=== PATIENT | female | born 1955 | race Caucasian/White ===

== ENCOUNTER 2017-09-14 21:24 | Emergency (ER) | payer BC ==
--- NOTE | 2017-09-14 21:47 | RAD ---
TWO VIEW LEFT HUMERUS 09/14/17 INDICATION: Injury. FINDINGS: No fracture or dislocation. IMPRESSION: No acute process. POS: [facility]
[2017-09-14] MEDS ORDERED: Ketorolac Tromethamine 30 MG/ML VIAL ONE (22:59)
== END 2017-09-14 23:15 | disposition home or self-care (01) ==
LOC: ERS 21:24
DX: S40.022A Contusion of left upper arm, initial encounter (principal); E03.9 Hypothyroidism, unspecified; Z79.899 Other long term (current) drug therapy; W10.9XXA Fall (on) (from) unspecified stairs and steps, initial encounter
CPT/HCPCS: 96372; J1885

== ENCOUNTER 2019-03-12 12:44 | Emergency (ER) | payer BC, SELFPAY ==
[2019-03-12] MEDS ORDERED: Lidocaine 1% w/Epinephrine 1:100K 20 ML VIAL ONE (15:14)
[2019-03-12] MEDS ORDERED: Bacitracin Zinc 1 Packet ONE (16:20)
== END 2019-03-12 16:55 | disposition home or self-care (01) ==
LOC: ERS 12:44
DX: I83.91 Asymptomatic varicose veins of right lower extremity (principal); E03.9 Hypothyroidism, unspecified; Z79.899 Other long term (current) drug therapy
CPT/HCPCS: 99283; J2001

== ENCOUNTER 2019-09-12 14:26 | Outpatient (CLI) | payer OTHER ==
--- NOTE | 2019-09-17 09:44 | MMO ---
Bilateral MAMMO Bilat Screen [facility]. CLINICAL HISTORY: Patient is 63 years old and is seen for screening. The patient has no family history of breast cancer. The patient has no personal history of cancer. VIEWS: The views performed were: bilateral craniocaudal with tomosynthesis and bilateral mediolateral oblique with tomosynthesis. FILMS COMPARED: The present examination has been compared to prior imaging studies performed at [facility] on 09/21/2017 and 10/03/2017. This study has been interpreted with the assistance of computer-aided detection. MAMMOGRAM FINDINGS: The breasts are almost entirely fat. There are stable benign appearing calcifications seen in both breasts. Nodularity is stable. There are no suspicious masses, suspicious calcifications, or new areas of architectural distortion. IMPRESSION: THERE IS NO MAMMOGRAPHIC EVIDENCE OF MALIGNANCY. A ROUTINE FOLLOW-UP MAMMOGRAM IN 1 YEAR IS RECOMMENDED. THE RESULTS OF THIS EXAM WERE SENT TO THE PATIENT. ACR BI-RADS Category 2 - Benign finding MAMMOGRAPHY NOTE: 1. A negative mammogram report should not delay a biopsy if a dominant of clinically suspicious mass is present. 2. Approximately 10% to 15% of breast cancers are not detected by mammography. 3. Adenosis and dense breasts may obscure an underlying neoplasm. Reported by: ASIM BEST MD Electonically Signed: [id number]
== END 2019-09-12 14:27 | disposition home or self-care (01) ==
LOC: BICMAMMO 14:26
PROVIDERS: ATTEND Internal Medicine
DX: Z12.31 Encounter for screening mammogram for malignant neoplasm of breast (principal)
CPT/HCPCS: 77063; 77067

== ENCOUNTER 2021-04-15 11:15 | Outpatient (CLI) | payer MEDICARE | END 2021-04-15 11:16 | disposition home or self-care (01) | LOC: BICMAMMO 11:15 | PROVIDERS: ATTEND Internal Medicine | DX: Z12.31 Encounter for screening mammogram for malignant neoplasm of breast (principal); Z80.3 Family history of malignant neoplasm of breast; Z85.828 Personal history of other malignant neoplasm of skin | CPT/HCPCS: 77063; 77067 ==

== ENCOUNTER 2021-09-15 15:14 | Outpatient (CLI) | payer MEDICARE | END 2021-09-15 15:15 | disposition home or self-care (01) | LOC: BICMRI 15:14 | PROVIDERS: ATTEND Family Medicine | DX: M47.816 Spondylosis without myelopathy or radiculopathy, lumbar region (principal); M51.9 Unspecified thoracic, thoracolumbar and lumbosacral intervertebral disc disorder; M51.36 Other intervertebral disc degeneration, lumbar region; M51.27 Other intervertebral disc displacement, lumbosacral region; M48.07 Spinal stenosis, lumbosacral region; M48.061 Spinal stenosis, lumbar region without neurogenic claudication | CPT/HCPCS: 72148 ==

== ENCOUNTER 2024-03-30 01:03 | Emergency (ER) | payer MEDICARE ==
[2024-03-30 02:23] LABS: #Basophils 0.06 10x3/uL (0.0-0.2); %Basophils 0.9 % (0.0-1.0); %Eosinophils 3.8 % (0.0-10.0); %Lymphocytes 41.1 % (21.0-51.0); %Monocytes 11.6 % (0.0-10.0); %Neutrophils 42.4 % (42.0-75.0); Hematocrit 40.7 % (36.0-47.0); Hemoglobin 13.3 g/dL (12.0-16.0); Mean Corpuscular HGB CONC 32.7 g/dL (32.0-36.0); Mean Corpuscular Hemoglobin 31.1 pg (27.0-31.0); Mean Corpuscular Volume 95.3 fL (78.0-98.0); Mean Platelet Volume 10.3 fL (7.4-10.4); Platelet Count 217 10x3/uL (130-400); RBC Distribution Width 12.6 % (11.5-14.5); Red Blood Cell (RBC) Count 4.27 mill/uL (4.20-5.40)
[2024-03-30 02:35] LABS: ALT (SGPT) 16 U/L (8-55); AST (SGOT) 18 U/L (5-34); Albumin 3.7 g/dL (3.4-4.8); Alkaline Phosphatase 55 U/L (40-110); Anion Gap 13 mmol/L (10-20); BUN (Urea Nitrogen) 18 mg/dL (9.8-20.1); Bilirubin, Total 0.5 mg/dL (0.2-1.2); Calc. Creatinine Clearance 0 mL/min (70-130); Calcium 9.5 mg/dL (7.8-10.44); Carbon Dioxide 24 mmol/L (23-31); Chloride 108 mmol/L (98-107); Estimated GFR 66; Globulin 3.5 g/dL (2.4-3.5); Glucose 111 mg/dL (80-115); Potassium 3.8 mmol/L (3.5-5.1); Protein, Total 7.2 g/dL (5.8-8.1); Sodium 141 mmol/L (136-145)
== END 2024-03-30 03:21 | disposition home or self-care (01) ==
LOC: ERS 01:03
DX: L97.929 Non-pressure chronic ulcer of unspecified part of left lower leg with unspecified severity (principal); E03.9 Hypothyroidism, unspecified; M19.90 Unspecified osteoarthritis, unspecified site
CPT/HCPCS: 36415; 80053; 85025; 99283

== ENCOUNTER 2024-10-06 17:44 | Emergency (ER) | payer MEDICARE ==
[2024-10-06 18:43] LABS: #Basophils 0.08 10x3/uL (0.0-0.2); %Basophils 1.1 % (0.0-1.0); %Lymphocytes 37.5 % (21.0-51.0); %Monocytes 7.3 % (0.0-10.0); Hematocrit 43.8 % (36.0-47.0); Hemoglobin 14.5 g/dL (12.0-16.0); Mean Corpuscular HGB CONC 33.1 g/dL (32.0-36.0); Mean Corpuscular Hemoglobin 32.2 pg (27.0-31.0); Mean Corpuscular Volume 97.1 fL (78.0-98.0); Mean Platelet Volume 10.2 fL (7.4-10.4); Platelet Count 246 10x3/uL (130-400); RBC Distribution Width 12.7 % (11.5-14.5); Red Blood Cell (RBC) Count 4.51 mill/uL (4.20-5.40)
[2024-10-06 18:57] LABS: ALT (SGPT) 12 U/L (8-55); AST (SGOT) 19 U/L (5-34); Albumin 4.2 g/dL (3.4-4.8); Alkaline Phosphatase 60 U/L (40-110); Anion Gap 15 mmol/L (10-20); BUN (Urea Nitrogen) 20 mg/dL (9.8-20.1); Bilirubin, Total 0.4 mg/dL (0.2-1.2); Calc. Creatinine Clearance 0 mL/min (70-130); Calcium 9.3 mg/dL (7.8-10.44); Carbon Dioxide 23 mmol/L (23-31); Chloride 107 mmol/L (98-107); Estimated GFR 56; Glucose 129 mg/dL (80-115); Potassium 4.1 mmol/L (3.5-5.1); Protein, Total 8.2 g/dL (5.8-8.1); Sodium 141 mmol/L (136-145)
== END 2024-10-06 20:37 | disposition home or self-care (01) ==
LOC: ERS 17:44
DX: I87.2 Venous insufficiency (chronic) (peripheral) (principal); E03.9 Hypothyroidism, unspecified; Z79.899 Other long term (current) drug therapy; Z96.641 Presence of right artificial hip joint
CPT/HCPCS: 36415; 80053; 83605; 85025